=== PATIENT | female | born 1990 | race Caucasian/White ===

== ENCOUNTER 2018-07-18 08:15 | Outpatient (CLI) | payer OTHER ==
--- NOTE | 2018-07-18 10:28 | Ultrasound Report ---
Reason: ENCOUNTER FOR TEST, RESULT POSITIVE Procedure Date: 07/18/2018 Accession Number: [id number] / [id number] Procedure: US - OB First Trimester CPT Code: FULL RESULT: EXAM: FIRST TRIMESTER OBSTETRIC ULTRASOUND ( BETWEEN 11 AND 14 WEEKS weeks) EXAM DATE: 07/18/2018 10:08 AM. CLINICAL HISTORY: Uncertain dates. Size/dates. Viability. LMP: Unknown. COMPARISONS: None. TECHNIQUE: Transabdominal ultrasound examination with static image documentation. CLINICAL DATES: Unknown ASSESSMENT: Gestational Sac: Single intrauterine. Normal shape. Embryo: CRL (crown-rump length) 58.7 mm = 12 weeks 3 days. Cardiac activity: 154 beats per minute. Yolk sac: 6.1 mm. Amniotic fluid: Not accurately assessed at this gestational age. Early placenta: Not visible at this gestational age. Other: No perigestational fluid collection demonstrated. ANATOMY: Within the limits of first trimester ultrasound, anatomy appears normal. The nasal bone is present. The cranium, choroid plexus, nuchal region, anterior abdominal wall, cord insertion region, stomach and bladder are visualized and are within normal limits for gestational age. Cardiac situs is normal. Both upper and lower extremities are visualized. MATERNAL STRUCTURES: Uterus: Anteverted. Small posterior probable fibroid in uterine body 1.6 x 1.6 x 1.5 cm.. Cervix: Closed. Right Ovary/Adnexa: Unremarkable. The ovary measures 3.1 x 2.1 x 1.8 cm, volume 6.1 cc. Left Ovary/Adnexa: Unremarkable. The ovary measures 3.4 x 1.7 x 2.2 cm, volume 6.6 cc. Free Fluid: None. Other: None. IMPRESSION: 1. Single viable intrauterine at EGA 12 weeks 3 days with JERAD 01/27/2019 based on crown-rump length. 2. Normal early assessment of anatomy. 3. Exam otherwise as above. RADIA
== END 2018-07-18 08:16 | disposition home or self-care (01) ==
LOC: DI 08:15
PROVIDERS: ATTEND Registered Nurse
DX: Z32.01 Encounter for pregnancy test, result positive (principal)
CPT/HCPCS: 76801

== ENCOUNTER 2018-07-21 08:00 | Outpatient (CLI) | payer OTHER ==
[2018-07-21 15:16] LABS: MUDS CUTOFF CONCENTRATIONS CUTOFF CONC BELOW:
[2018-07-21 15:55] LABS: AMPHETAMINE SCREEN,URINE NEGATIVE (NEGATIVE); BENZODIAZEPINES SCREEN, URINE NEGATIVE (NEGATIVE); COCAINE SCREEN URINE NEGATIVE (NEGATIVE); METHADONE SCREEN, URINE NEGATIVE (NEGATIVE); METHAMPHETAMINES SCREEN, URINE NEGATIVE (NEGATIVE); OPIATE SCREEN, URINE NEGATIVE (NEGATIVE); OXYCODONE SCREEN, URINE NEGATIVE (NEGATIVE); PROPOXYPHENE SCREEN, URINE NEGATIVE (NEGATIVE); TRICYCLIC ANTIDEPRESSANT,URINE NEGATIVE (NEGATIVE)
== END 2018-07-21 08:01 | disposition home or self-care (01) ==
LOC: LAB.R 08:00
PROVIDERS: ATTEND Registered Nurse
DX: Z36.9 Encounter for antenatal screening, unspecified (principal)
CPT/HCPCS: 80306; 87491; 87591

== ENCOUNTER 2018-07-22 15:00 | Outpatient (CLI) | payer OTHER ==
[2018-07-22 15:25] LABS: BASOPHILS % (AUTO) 0.1 %; EOSINOPHILS # (AUTO) 0.3 10^3/uL (0.0-0.7); EOSINOPHILS % (AUTO) 2.5 %; HGB - HEMOGLOBIN 11.4 g/dL (12.0-16.0); LYMPHOCYTES # (AUTO) 1.9 10^3/uL (1.5-3.5); MEAN CORPUSCULAR HEMOGLOBIN 29.5 pg (27.0-31.0); MEAN CORPUSCULAR HGB CONC 34.2 g/dL (32.0-36.0); MEAN CORPUSCULAR VOLUME 86.2 fL (81.0-99.0); MEAN PLATELET VOLUME 7.9 fL (7.9-10.8); MONOCYTES # (AUTO) 0.7 10^3/uL (0.0-1.0); MONOCYTES % (AUTO) 6.6 %; NEUTROPHILS # (AUTO) 8.3 10^3/uL (1.5-6.6); NEUTROPHILS % (AUTO) 73.8 %; PLT - PLATELET COUNT 217 10^3/uL (130-450); RED BLOOD COUNT 3.88 10^6/uL (4.20-5.40); RED CELL DISTRIBUTION WIDTH 14.1 % (12.0-15.0); WHITE BLOOD COUNT 11.2 x10^3/uL (4.8-10.8)
[2018-07-22 16:06] LABS: BILIRUBIN,URINE NEGATIVE (NEGATIVE); GLUCOSE, URINE (UA) NEGATIVE (NEGATIVE); KETONES,URINE (UA) NEGATIVE (NEGATIVE); LEUKOCYTE ESTERASE, URINE NEGATIVE (NEGATIVE); NITRITE,URINE NEGATIVE (NEGATIVE); OCCULT BLOOD,URINE NEGATIVE (NEGATIVE); PROTEIN,URINE NEGATIVE (NEGATIVE); UROBILINOGEN,URINE 0.2 (NORMAL) E.U./dL (NORMAL)
[2018-07-22 16:17] LABS: BACTERIA,URINE Moderate /HPF (None Seen); CLARITY,URINE CLEAR (CLEAR); RBC,URINE None Seen /HPF (0-5); SQUAMOUS EPITHELIAL CELL,UR MANY Squamous (<= Few)
[2018-07-23 13:56] LABS: HEPATITIS C ANTIBODY NON-REACTIVE (NON-REACTIVE)
[2018-07-23 15:06] LABS: HIV AG/AB 4TH GEN NON-REACTIVE (NON-REACTIVE)
[2018-07-23 15:17] LABS: HEPATITIS B SURFACE ANTIGEN NON-REACTIVE (NON-REACTIVE)
== END 2018-07-22 15:01 | disposition home or self-care (01) ==
LOC: LAB 15:00
PROVIDERS: ATTEND Registered Nurse
DX: Z36.9 Encounter for antenatal screening, unspecified (principal)
CPT/HCPCS: 36415; 81001; 81599; 85025; 86592; 86762; 86803; 86850; 86900; 86901; 87340; 87389

== ENCOUNTER 2018-09-09 12:04 | Outpatient (CLI) | payer OTHER ==
--- NOTE | 2018-09-10 17:14 | Ultrasound Report ---
Reason: ENCTR FOR SCREENING Procedure Date: 09/09/2018 Accession Number: [id number] / [id number] Procedure: US - OB Detailed Eval CPT Code: FULL RESULT: EXAM: COMPLETE OBSTETRICAL ULTRASOUND EXAM DATE: 09/09/2018 01:45 PM. CLINICAL HISTORY: anatomic survey. COMPARISON: 07/17/2018 TECHNIQUE: Real-time sonographic evaluation of the fetus performed by the cold working supervisor. Multiple digital media representative static images were saved for review. DATING: Established EGA 20 weeks 0 days with JERAD 01/27/2019 based on first ultrasound of 07/17/2018. EGA 20 weeks 1 day with JERAD 01/26/2019 based on the current ultrasound. GENERAL EVALUATION [place] . Cardiac activity: 146 bpm. movement: Present Presentation: Cephalic. Placenta: Posterior position. No evidence for previa. Umbilical cord: 3 vessel cord. Central placental cord origin. Amniotic fluid: Subjectively normal. MVP 5 cm. BIOMETRY Bi-Parietal Diameter (BPD): 4.8 cm, 20 weeks 4 days Head Circumference (HC): 17.4 cm, 19 weeks 6 days Abdominal Circumference (AC): 15.2 cm, 20 weeks 2 days Femur Length (FL): 3.2 cm, 19 weeks 6 days Estimated Weight: 338 gm. ANATOMY The intracranial structures, profile, face/nose/lips, spine, 4 chamber heart and outflow tracts, stomach, abdominal wall and cord insertion, diaphragm, kidneys, bladder, and extremities were seen and demonstrate no abnormality. MATERNAL STRUCTURES Uterus: Unremarkable. Cervix: Long and closed. Right ovary/adnexa: Unremarkable. Left ovary/adnexa: Unremarkable. Free fluid: None. IMPRESSION: 1. [place] intrauterine with gestational age 20 weeks 1 days based on the current ultrasound concordant with the expected age based on the first ultrasound. 2. Normal anatomic survey. No anatomic abnormalities are detected at this time. RADIA
== END 2018-09-09 12:05 | disposition home or self-care (01) ==
LOC: DI 12:04
PROVIDERS: ATTEND Nurse Practitioner Obstetrics & Gynecology
DX: Z36.9 Encounter for antenatal screening, unspecified (principal)
CPT/HCPCS: 76811

== ENCOUNTER 2018-10-04 19:26 | Outpatient (CLI) | payer OTHER ==
[2018-10-04 19:44] VITALS: BP 128/78
[2018-10-04] MEDS ORDERED: LACTATED RINGERS 1,000 ML IV SCH (19:54)
[2018-10-04 19:55] LABS: BILIRUBIN,URINE NEGATIVE (NEGATIVE); GLUCOSE, URINE (UA) >=1000 mg/dL (NEGATIVE); KETONES,URINE (UA) NEGATIVE (NEGATIVE); LEUKOCYTE ESTERASE, URINE NEGATIVE (NEGATIVE); NITRITE,URINE NEGATIVE (NEGATIVE); OCCULT BLOOD,URINE NEGATIVE (NEGATIVE); PROTEIN,URINE NEGATIVE (NEGATIVE); UROBILINOGEN,URINE 0.2 (NORMAL) E.U./dL (NORMAL)
[2018-10-04 20:01] LABS: BASOPHILS % (AUTO) 0.2 %; EOSINOPHILS # (AUTO) 0.2 10^3/uL (0.0-0.7); EOSINOPHILS % (AUTO) 1.8 %; HGB - HEMOGLOBIN 11.5 g/dL (12.0-16.0); LYMPHOCYTES # (AUTO) 1.8 10^3/uL (1.5-3.5); LYMPHOCYTES % (AUTO) 15.4 %; MEAN CORPUSCULAR HEMOGLOBIN 29.4 pg (27.0-31.0); MEAN CORPUSCULAR HGB CONC 34.1 g/dL (32.0-36.0); MEAN CORPUSCULAR VOLUME 86.2 fL (81.0-99.0); MEAN PLATELET VOLUME 7.6 fL (7.9-10.8); MONOCYTES % (AUTO) 8.3 %; NEUTROPHILS # (AUTO) 8.6 10^3/uL (1.5-6.6); NEUTROPHILS % (AUTO) 74.3 %; PLT - PLATELET COUNT 250 10^3/uL (130-450); RED CELL DISTRIBUTION WIDTH 13.4 % (12.0-15.0); WHITE BLOOD COUNT 11.6 x10^3/uL (4.8-10.8)
[2018-10-04 20:06] LABS: BACTERIA,URINE Rare /HPF (None Seen); CLARITY,URINE CLEAR (CLEAR); RBC,URINE 0-5 /HPF (0-5); SQUAMOUS EPITHELIAL CELL,UR RARE Squamous (<= Few)
[2018-10-04 20:12] LABS: ALBUMIN 3.2 g/dL (3.2-5.5); BILIRUBIN,TOTAL 0.4 mg/dL (0.2-1.0); CALCIUM 8.4 mg/dL (8.5-10.3); CREATININE 0.7 mg/dL (0.4-1.0); TOTAL PROTEIN 6.5 g/dL (6.7-8.2)
[2018-10-04] MEDS ORDERED: metroNIDAZOLE 250 MG TABLET PO SCH (21:00)
[2018-10-04 21:15] LABS: HB2 TOTAL 12.5 g/dL; HEMOGLOBIN A1C 0.45 g/dL; HEMOGLOBIN A1C % 5.4 % (4.6-6.2)
--- NOTE | 2018-10-04 22:33 | Ultrasound Report ---
Reason: contractions and spotting; cervical length Procedure Date: 10/04/2018 Accession Number: [id number] / [id number] Procedure: US - OB Transvaginal CPT Code: FULL RESULT: EXAM: LIMITED OBSTETRICAL ULTRASOUND EXAM DATE: 10/04/2018 09:20 PM. CLINICAL HISTORY: Bleeding. 23 weeks . Concern for abruption. COMPARISON: None. TECHNIQUE: Real-time sonographic evaluation of the fetus performed by the reinsurance accountant. Multiple retail customer service representative static images were saved for review. Additional transvaginal imaging to more accurately evaluate cervical length/placental position/etc. DATING: Established EGA 23 weeks 5 days with JERAD 01/26/2019. GENERAL EVALUATION [place] . Cardiac activity: 153 bpm. movement: Visualized. Presentation: Cephalic. Placenta: Posterior position. Amniotic fluid: Normal. ALVA 17.3 cm. MVP 5.4 cm. MATERNAL STRUCTURES Transvaginal imaging demonstrates closed cervix 5.1 cm long. IMPRESSION: 1. [place] live intrauterine with gestational age 23 weeks 5 days based on established JERAD. 2. Posterior placenta with no sign of abruption or previa. 3. Normal ALVA of 17.3 cm. 4. Closed cervix 5.1 cm long. RADIA
--- NOTE | 2018-10-04 22:34 | Ultrasound Report ---
Reason: bleeding, 23 weeks, rule out abruption Procedure Date: 10/04/2018 Accession Number: [id number] / [id number] Procedure: US - OB Limited CPT Code: FULL RESULT: EXAM: LIMITED OBSTETRICAL ULTRASOUND EXAM DATE: 10/04/2018 09:20 PM. CLINICAL HISTORY: Bleeding. 23 weeks . Concern for abruption. COMPARISON: None. TECHNIQUE: Real-time sonographic evaluation of the fetus performed by the senior net engineer. Multiple district representative static images were saved for review. Additional transvaginal imaging to more accurately evaluate cervical length/placental position/etc. DATING: Established EGA 23 weeks 5 days with JERAD 01/26/2019. GENERAL EVALUATION [place] . Cardiac activity: 153 bpm. movement: Visualized. Presentation: Cephalic. Placenta: Posterior position. Amniotic fluid: Normal. ALVA 17.3 cm. MVP 5.4 cm. MATERNAL STRUCTURES Transvaginal imaging demonstrates closed cervix 5.1 cm long. IMPRESSION: 1. [place] live intrauterine with gestational age 23 weeks 5 days based on established JERAD. 2. Posterior placenta with no sign of abruption or previa. 3. Normal ALVA of 17.3 cm. 4. Closed cervix 5.1 cm long. RADIA
== END 2018-10-04 22:50 | disposition home or self-care (01) ==
LOC: WFO 19:26 → FBP 19:28 → WFO 22:50
PROVIDERS: ATTEND Registered Nurse
DX: O46.92 Antepartum hemorrhage, unspecified, second trimester (principal); O23.592 Infection of other part of genital tract in pregnancy, second trimester; Z3A.23 23 weeks gestation of pregnancy
CPT/HCPCS: 36415; 76815; 76817; 80053; 81001; 83036; 85025; 85384; 86850; 86900; 86901; 87491; 87591; 99213; A9270; J7120

== ENCOUNTER 2018-10-05 14:11 | Outpatient (CLI) | payer OTHER | END 2018-10-05 14:12 | disposition home or self-care (01) | LOC: LAB 14:11 | PROVIDERS: ATTEND Registered Nurse | DX: Z53.9 Procedure and treatment not carried out, unspecified reason (principal) ==

== ENCOUNTER 2018-10-25 09:12 | Outpatient (CLI) | payer OTHER | END 2018-10-25 09:13 | disposition home or self-care (01) | LOC: LAB 09:12 | PROVIDERS: ATTEND Registered Nurse | DX: Z36.9 Encounter for antenatal screening, unspecified (principal) | CPT/HCPCS: 36415; 82951; 82952; 86850 ==

== ENCOUNTER 2018-12-01 18:11 | Outpatient (CLI) | payer OTHER | END 2018-12-01 18:12 | disposition critical access hospital (66) | LOC: EMS 18:11 | PROVIDERS: ATTEND Surgery | DX: O99.89 Other specified diseases and conditions complicating pregnancy, childbirth and the puerperium (principal); R11.2 Nausea with vomiting, unspecified; R19.7 Diarrhea, unspecified | CPT/HCPCS: A0425; A0427 ==

== ENCOUNTER 2018-12-01 18:40 | Outpatient (CLI) | payer OTHER ==
[2018-12-01] MEDS ORDERED: LACTATED RINGERS 1,000 ML IV ONE ×2 (19:11→19:21)
[2018-12-01] MEDS ORDERED: ONDANSETRON 4 MG/2 ML VIAL IVP PRN (19:11)
[2018-12-01] MEDS ORDERED: ONDANSETRON 4 MG/2 ML VIAL ONE (19:20)
[2018-12-01 19:44] VITALS: BP 113/58
[2018-12-01 19:48] LABS: ALBUMIN 2.8 g/dL (3.2-5.5); ALBUMIN/GLOBULIN RATIO 0.8 (1.0-2.2); BILIRUBIN,TOTAL 0.6 mg/dL (0.2-1.0); CALCIUM 8.2 mg/dL (8.5-10.3); CREATININE 0.4 mg/dL (0.4-1.0); TOTAL PROTEIN 6.2 g/dL (6.7-8.2)
[2018-12-01 20:27] LABS: BILIRUBIN,URINE NEGATIVE (NEGATIVE); GLUCOSE, URINE (UA) 100 mg/dL (NEGATIVE); KETONES,URINE (UA) 40 mg/dL (NEGATIVE); LEUKOCYTE ESTERASE, URINE NEGATIVE (NEGATIVE); NITRITE,URINE NEGATIVE (NEGATIVE); OCCULT BLOOD,URINE NEGATIVE (NEGATIVE); PROTEIN,URINE NEGATIVE (NEGATIVE); UROBILINOGEN,URINE 0.2 (NORMAL) E.U./dL (NORMAL)
[2018-12-01 20:28] LABS: CLARITY,URINE CLEAR (CLEAR)
== END 2018-12-01 21:30 | disposition home or self-care (01) ==
LOC: WFO 18:40 → FBP 18:40 → WFO 21:30
PROVIDERS: ATTEND Registered Nurse
DX: O99.613 Diseases of the digestive system complicating pregnancy, third trimester (principal); K52.9 Noninfective gastroenteritis and colitis, unspecified; Z3A.31 31 weeks gestation of pregnancy
CPT/HCPCS: 36415; 80053; 81003; 96374; 99213; J7120; 59025; 81001; 87086

== ENCOUNTER 2018-12-24 08:00 | Outpatient (CLI) | payer OTHER | END 2018-12-24 23:59 | disposition home or self-care (01) | LOC: LAB.R 08:00 | PROVIDERS: ATTEND Registered Nurse | DX: Z34.90 Encounter for supervision of normal pregnancy, unspecified, unspecified trimester (principal) | CPT/HCPCS: 87491; 87591; 87797 ==

== ENCOUNTER 2018-12-24 10:38 | Outpatient (CLI) | payer OTHER ==
[2018-12-25 12:57] LABS: HEPATITIS C ANTIBODY NON-REACTIVE (NON-REACTIVE)
[2018-12-25 14:57] LABS: HIV AG/AB 4TH GEN NON-REACTIVE (NON-REACTIVE)
== END 2018-12-24 10:39 | disposition home or self-care (01) ==
LOC: LAB 10:38
PROVIDERS: ATTEND Registered Nurse
DX: Z34.90 Encounter for supervision of normal pregnancy, unspecified, unspecified trimester (principal)
CPT/HCPCS: 36415; 81599; 86592; 86803; 87389; 87491; 87591; 87797

== ENCOUNTER 2019-01-21 08:12 | Inpatient (IN) | payer OTHER ==
[2019-01-21] MEDS ORDERED: AMPICILLIN 2 GM in SODIUM CHLORIDE 0.9% MINIBAG 100 ML IV ONE (08:58)
[2019-01-21] MEDS ORDERED: fentaNYL 100 MCG/2 ML VIAL IVP PRN (08:58)
[2019-01-21] MEDS ORDERED: ONDANSETRON 4 MG/2 ML VIAL IVP PRN (08:58)
[2019-01-21] MEDS ORDERED: SODIUM CHLORIDE FLUSH 0.9% 10 ML SYRINGE IVP PRN (08:58)
[2019-01-21] MEDS: LACTATED RINGERS 1,000 ML IV SCH ×2 (09:45→19:01)
[2019-01-21] MEDS: SODIUM CHLORIDE FLUSH 0.9% 10 ML SYRINGE IVP SCH (09:45)
[2019-01-21 10:07] LABS: BASOPHILS % (AUTO) 0.3 %; EOSINOPHILS # (AUTO) 0.2 10^3/uL (0.0-0.7); EOSINOPHILS % (AUTO) 1.7 %; HGB - HEMOGLOBIN 11.5 g/dL (12.0-16.0); LYMPHOCYTES # (AUTO) 1.8 10^3/uL (1.5-3.5); LYMPHOCYTES % (AUTO) 17.3 %; MEAN CORPUSCULAR HEMOGLOBIN 27.3 pg (27.0-31.0); MEAN CORPUSCULAR HGB CONC 33.4 g/dL (32.0-36.0); MEAN CORPUSCULAR VOLUME 81.6 fL (81.0-99.0); MEAN PLATELET VOLUME 8.5 fL (7.9-10.8); MONOCYTES # (AUTO) 0.8 10^3/uL (0.0-1.0); MONOCYTES % (AUTO) 7.4 %; NEUTROPHILS # (AUTO) 7.5 10^3/uL (1.5-6.6); NEUTROPHILS % (AUTO) 73.3 %; PLT - PLATELET COUNT 250 10^3/uL (130-450); RED BLOOD COUNT 4.21 10^6/uL (4.20-5.40); RED CELL DISTRIBUTION WIDTH 14.7 % (12.0-15.0); WHITE BLOOD COUNT 10.2 x10^3/uL (4.8-10.8)
[2019-01-21] MEDS: OXYTOCIN/SODIUM CHLORIDE 500 ML IV SCH (11:02)
--- NOTE | 2019-01-21 13:08 | HISTORY & PHYSICAL EXAMINATION ---
Chief Complaint - Chief Complaint Chief Complaint: Contractions History of Present Illness - Admitted From Admitted From:: HOME - History Obtained From Records Reviewed: YES History obtained from: PATIENT Exam Limitations: NONE - History of Present Illness HPI Comment/Other: 28 y.o. EDC 01/27/19 based on 12 week US and LMP, EGA 39 1/7 weeks EGA admitted in latent labor, who was told to come in for IOL given hx of preciptous delivery with last . Patient noted to be sandeep spontaneously upon presentation to L&D q4-5 mins, mildly. PNC has been unremarkable. She is GBS + and will get prophylactic ABX during labor. OB Hx notable for 2 prior largest 7 lbs 12 onz. Labs: MBT O POS PNAS NEG HIV 1&2 NEG RPR/HepBsAg NR x 2 GC/CT NEG 2 GBS NEG 3 HR GTT with only one elevated value per pt. hx. 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 : reports: None HEENT: reports: None Psych: reports: None Musculoskeletal: reports: None Derm: reports: None MRSA Hx?: No Other Past Medical History: NONE Meds/Allgy - Allergies Allergies/Adverse Reactions: Allergies Allergy/AdvReac Type Severity Reaction Status Date / Time No Known Drug Allergies Allergy Verified 10/04/18 20:05 Review of Systems - All Other Systems All Other Systems: reports: Other (ROS NEGATIVE FOR HEENT, CV, RESP, GI/, MS/NM, SKIN, ENDOCRINE, PSYCH, HEMATOLOGIC, ENDOCRINEL) Exam - Vital Signs Reviewed Vital Signs: Yes - Physical Exam General Appearance: positive: No acute distress, Alert Eyes Bilateral: positive: Normal inspection, PERRL ENT: positive: ENT inspection nml Neck: positive: Nml inspection, Thyroid nml Respiratory: positive: Chest non-tender, No respiratory distress Cardiovascular: positive: Regular rate & rhythm, No murmur Peripheral Pulses: positive: 2+ Abdomen: positive: Non-tender, No organomegaly, Other (UX GRAVID AND CONSISTENT WITH DATES. CX /-2/VTX/BOWI AT 0915 HOURS CATEGORY I FHR TRACING WITH SPONTANEOUS MILD CONTRACTIONS Q3-4 MIN) Back: positive: Nml inspection Skin: positive: Color nml, No rash, Warm Extremities: positive: Non-tender, Full ROM, Nml appearance Neurologic/Psychiatric: positive: Oriented x3, CN's nml (2-12), Motor nml Conclusion/Plan - Problem List (1) Normal labor Conclusion/Plan: # 28 y.o. 39 1/7 weeks in spontaneous early labor admitted for delivery. # GBS POS, will RX with IV AMP until delivery # Pitocin augmentation to shorten labor # Otherwise routine orders. - Lab Results Lab results reviewed: Yes Fish Bones: 01/21/19 09:30
[2019-01-21] MEDS: AMPICILLIN 1 GM in SODIUM CHLORIDE 0.9% MINIBAG 100 ML IV SCH ×2 (13:50→17:56)
--- NOTE | 2019-01-21 15:54 | PROVIDER PROGRESS NOTE ---
Subjective - Prog Note Date Prog Note Date: 01/21/19 (ADMINISTRATIVE APPEALS TRIBUNAL MEMBER STAFF) Prog Note Time: 15:20 - Subjective Subjective: Patient on 4 miU pitocin with contractions q2-3 mins. Category 1 FHR tracing. Cx /-2/VTX/BOWI at 1520 hours. Patient has received 2nd dose of AMP for GBS prophylaxis. AROM clear at 1520. Continue present care. Objective - Lab Results Fish Bones: 01/21/19 09:30 Other Labs: Lab Results x24hrs 01/21/19 01/21/19 Range/Units 09:30 09:30 WBC 10.2 (4.8-10.8) x10^3/uL RBC 4.21 (4.20-5.40) 10^6/uL Hgb 11.5 L (12.0-16.0) g/dL Hct 34.3 L (37.0-47.0) % MCV 81.6 (81.0-99.0) fL MCH 27.3 (27.0-31.0) pg MCHC 33.4 (32.0-36.0) g/dL RDW 14.7 (12.0-15.0) % Plt Count 250 (130-450) 10^3/uL MPV 8.5 (7.9-10.8) fL Neut # (Auto) 7.5 H (1.5-6.6) 10^3/uL Lymph # (Auto) 1.8 (1.5-3.5) 10^3/uL Wolfe # (Auto) 0.8 (0.0-1.0) 10^3/uL Eos # (Auto) 0.2 (0.0-0.7) 10^3/uL Baso # (Auto) 0.0 (0.0-0.1) 10^3/uL Absolute Nucleated RBC 0.00 x10^3/uL Nucleated RBC % 0.0 /100WBC Blood Type O POSITIVE Antibody Screen NEGATIVE Assessment/Plan - Problem List (1) Normal labor Impression: As Above.
[2019-01-21] MEDS ORDERED: fentaNYL 100 MCG/2 ML VIAL IVP ONE (18:30)
[2019-01-21] MEDS ORDERED: fentaNYL 100 MCG/2 ML VIAL IVP SCH (18:30)
[2019-01-21] MEDS ORDERED: LIDOCAINE 1% 2 ML VIAL SUBQ ONE (19:15)
[2019-01-21] MEDS ORDERED: LIDOCAINE 1% 2 ML VIAL SUBQ SCH (19:35)
[2019-01-21] MEDS ORDERED: OXYTOCIN 10 UNIT/ML VIAL IM SCH (19:48)
--- NOTE | 2019-01-21 19:57 | PROVIDER PROGRESS NOTE ---
Subjective - Prog Note Date Prog Note Date: 01/21/19 (DELIVERY NOTE) Prog Note Time: 19:53 - Subjective Subjective: DELIVERY NOTE: Patient progressed to C/C/+2 at 1858 hours. Delivered over intact perineum viable male infant with 9/9 (weight pending). Baby delivered at 1928. Cord clamped and cut after approx. 30 seconds after delivery. IV pitocin infusion then started and placenta delivered spontaneously at 1932 hours. Exam of canal revealed no cervical or vaginal laceration and intact perineum. EBL 200 mL. Both mother and baby doing well. Peds in attendance for this delivery. Objective - Vital Signs/Intake & Output Intake & Output: Intake & Output 01/18/19 01/19/19 01/20/19 01/21/19 23:59 23:59 23:59 23:59 Intake Total 1100 Balance 1100 - Lab Results Fish Bones: 01/21/19 09:30 Other Labs: Lab Results x24hrs 01/21/19 01/21/19 Range/Units 09:30 09:30 WBC 10.2 (4.8-10.8) x10^3/uL RBC 4.21 (4.20-5.40) 10^6/uL Hgb 11.5 L (12.0-16.0) g/dL Hct 34.3 L (37.0-47.0) % MCV 81.6 (81.0-99.0) fL MCH 27.3 (27.0-31.0) pg MCHC 33.4 (32.0-36.0) g/dL RDW 14.7 (12.0-15.0) % Plt Count 250 (130-450) 10^3/uL MPV 8.5 (7.9-10.8) fL Neut # (Auto) 7.5 H (1.5-6.6) 10^3/uL Lymph # (Auto) 1.8 (1.5-3.5) 10^3/uL [place] # (Auto) 0.8 (0.0-1.0) 10^3/uL Eos # (Auto) 0.2 (0.0-0.7) 10^3/uL Baso # (Auto) 0.0 (0.0-0.1) 10^3/uL Absolute Nucleated RBC 0.00 x10^3/uL Nucleated RBC % 0.0 /100WBC Blood Type O POSITIVE Antibody Screen NEGATIVE Assessment/Plan - Problem List (2) Spontaneous vaginal delivery Impression: As Above.
[2019-01-21] MEDS: IBUPROFEN 800 MG TABLET PO PRN (20:35)
[2019-01-21] MEDS: ACETAMINOPHEN 325 MG TABLET PO PRN (20:36)
[2019-01-21] MEDS: DOCUSATE SODIUM 100 MG CAPSULE PO PRN (20:36)
[2019-01-21] MEDS ORDERED: OXYTOCIN 10 UNIT/ML VIAL ONE (22:04)
[2019-01-21] MEDS ORDERED: LIDOCAINE-MPF 1% 30 ML VIAL ONE (22:34)
[2019-01-21] MEDS ORDERED: SODIUM CHLORIDE 0.9% 0 ML IV ONE (23:03)
[2019-01-22] MEDS: AMPICILLIN 1 GM in SODIUM CHLORIDE 0.9% MINIBAG 100 ML IV SCH (00:57)
[2019-01-22] MEDS: SIMETHICONE CHEW 80 MG TABLET PO SCH ×3 (00:58→14:46)
[2019-01-22] MEDS: IBUPROFEN 800 MG TABLET PO PRN ×2 (04:06→14:46)
[2019-01-22] MEDS: ACETAMINOPHEN 325 MG TABLET PO PRN ×2 (04:06→14:47)
[2019-01-22 06:26] LABS: BASOPHILS % (AUTO) 0.3 %; EOSINOPHILS # (AUTO) 0.1 10^3/uL (0.0-0.7); HGB - HEMOGLOBIN 10.7 g/dL (12.0-16.0); LYMPHOCYTES # (AUTO) 2.1 10^3/uL (1.5-3.5); LYMPHOCYTES % (AUTO) 15.4 %; MEAN CORPUSCULAR HEMOGLOBIN 26.7 pg (27.0-31.0); MEAN CORPUSCULAR HGB CONC 32.5 g/dL (32.0-36.0); MEAN CORPUSCULAR VOLUME 82.3 fL (81.0-99.0); MEAN PLATELET VOLUME 8.2 fL (7.9-10.8); MONOCYTES # (AUTO) 1.2 10^3/uL (0.0-1.0); MONOCYTES % (AUTO) 8.5 %; NEUTROPHILS # (AUTO) 10.3 10^3/uL (1.5-6.6); NEUTROPHILS % (AUTO) 74.8 %; PLT - PLATELET COUNT 230 10^3/uL (130-450); RED BLOOD COUNT 4.02 10^6/uL (4.20-5.40); RED CELL DISTRIBUTION WIDTH 14.1 % (12.0-15.0); WHITE BLOOD COUNT 13.7 x10^3/uL (4.8-10.8)
--- NOTE | 2019-01-22 07:02 | PROVIDER PROGRESS NOTE ---
Subjective - Prog Note Date Prog Note Date: 01/22/19 (BUSINESS SUPPORT) Prog Note Time: 07:00 - Subjective Pt reports feeling: Improved Subjective: BUSINESS SUPPORT STAFF: PPD #1 S: No complaints, doing well. ambulating, denies heavy bleeding. Objective - Vital Signs/Intake & Output Reviewed Vital Signs: Yes Vital Signs: Vital Signs x48h Temp Pulse Resp BP Pulse Ox 01/22/19 04:00 36.8 C 88 16 116/69 98 01/21/19 23:27 37.1 C 78 18 119/65 99 Intake & Output: Intake & Output 01/19/19 01/20/19 01/21/19 01/22/19 23:59 23:59 23:59 23:59 Intake Total 1600.000 Output Total 200 450 Balance 1400.000 -450 - Objective General Appearance: positive: No acute distress, Alert Abdomen: positive: Non-tender, Other (UX FIRM U-6 AND NT, NORMAL LOCHIA) Extremities: positive: Non-tender, Full ROM - Lab Results Fish Bones: 01/22/19 06:21 Other Labs: Lab Results x24hrs 01/22/19 01/21/19 01/21/19 Range/Units 06:21 09:30 09:30 WBC 13.7 H 10.2 (4.8-10.8) x10^3/uL RBC 4.02 L 4.21 (4.20-5.40) 10^6/uL Hgb 10.7 L 11.5 L (12.0-16.0) g/dL Hct 33.1 L 34.3 L (37.0-47.0) % MCV 82.3 81.6 (81.0-99.0) fL MCH 26.7 L 27.3 (27.0-31.0) pg MCHC 32.5 33.4 (32.0-36.0) g/dL RDW 14.1 14.7 (12.0-15.0) % Plt Count 230 250 (130-450) 10^3/uL MPV 8.2 8.5 (7.9-10.8) fL Neut # (Auto) 10.3 H 7.5 H (1.5-6.6) 10^3/uL Lymph # (Auto) 2.1 1.8 (1.5-3.5) 10^3/uL [place] # (Auto) 1.2 H 0.8 (0.0-1.0) 10^3/uL Eos # (Auto) 0.1 0.2 (0.0-0.7) 10^3/uL Baso # (Auto) 0.0 0.0 (0.0-0.1) 10^3/uL Absolute Nucleated RBC 0.00 0.00 x10^3/uL Nucleated RBC % 0.0 0.0 /100WBC Blood Type O POSITIVE Antibody Screen NEGATIVE Assessment/Plan - Problem List (1) Normal labor Impression: PPD #1 S/P doing well. Routine care.
[2019-01-22] MEDS: DOCUSATE SODIUM 100 MG CAPSULE PO PRN (08:40)
[2019-01-22] MEDS: LACTATED RINGERS 1,000 ML IV SCH ×2 (13:47→13:48)
[2019-01-22] MEDS: OXYTOCIN/SODIUM CHLORIDE 500 ML IV SCH (13:47)
[2019-01-22] MEDS: SODIUM CHLORIDE FLUSH 0.9% 10 ML SYRINGE IVP SCH ×3 (13:47→13:50)
[2019-01-22 20:31] VITALS: BP 123/73
--- NOTE | 2019-01-22 21:32 | Discharge Plan ---
Discharge Plan Disposition: 01 Home, Self Care Condition: Good Diet: Regular Shower Restrictions: No Driving Restrictions: Yes (SEE WRITTEN INSTRUCTIONS) Weight Bearing: Full Weight Additional Instructions or Follow Up instructions: SEE WRITTEN INSTRUCTIONS No Smoking: If you smoke, Please STOP! Call for help. Follow-up with: Zuleyka Fleming CNM, ARNP [Provider Admit Priv/Credential] - 6 Weeks (6 week visit with Zuleyka Fleming)
--- NOTE | 2019-01-22 21:35 | DISCHARGE SUMMARY ---
Discharge Summary Admit Date: 01/21/19 Discharge Date: 01/22/19 Discharging Provider: KASSANDRA Code Status: Attempt Resuscitation Condition at Discharge: Good Discharge Disposition: 01 Home, Self Care - DIAGNOSES Admission Diagnoses: TERM LABOR SPONTANEOUS VAGINAL DELIVERY Discharge Diagnoses with Status of Each Condition: SPONTANEOUS VAGINAL DELIVERY (GOOD CONDITION) - HPI History of Present Illness: History of Present Illness - Admitted From Admitted From:: HOME - History Obtained From Records Reviewed: YES History obtained from: PATIENT Exam Limitations: NONE - History of Present Illness HPI Comment/Other: 28 y.o. EDC 01/27/19 based on 12 week US and LMP, EGA 39 1/7 weeks EGA admitted in latent labor, who was told to come in for IOL given hx of preciptous delivery with last . Patient noted to be sandeep spontaneously upon presentation to L&D q4-5 mins, mildly. PNC has been unremarkable. She is GBS + and will get prophylactic ABX during labor. OB Hx notable for 2 prior largest 7 lbs 12 onz. Labs: MBT O POS PNAS NEG HIV 1&2 NEG RPR/HepBsAg NR x 2 GC/CT NEG 2 GBS NEG 3 HR GTT with only one elevated value per pt. hx. 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 : reports: None HEENT: reports: None Psych: reports: None Musculoskeletal: reports: None Derm: reports: None MRSA Hx?: No Other Past Medical History: NONE Meds/Allgy - Allergies Allergies/Adverse Reactions: Allergies Allergy/AdvReac Type Severity Reaction Status Date / Time No Known Drug Allergies Allergy Verified 10/04/18 20:05 Review of Systems - All Other Systems All Other Systems: reports: Other (ROS NEGATIVE FOR HEENT, CV, RESP, GI/, MS/NM, SKIN, ENDOCRINE, PSYCH, HEMATOLOGIC, ENDOCRINEL) Exam - Vital Signs Reviewed Vital Signs: Yes - Physical Exam General Appearance: positive: No acute distress, Alert Eyes Bilateral: positive: Normal inspection, PERRL ENT: positive: ENT inspection nml Neck: positive: Nml inspection, Thyroid nml Respiratory: positive: Chest non-tender, No respiratory distress Cardiovascular: positive: Regular rate & rhythm, No murmur Peripheral Pulses: positive: 2+ Abdomen: positive: Non-tender, No organomegaly, Other (UX GRAVID AND CONSISTENT WITH DATES. CX 370/-2/VTX/BOWI AT 0915 HOURS CATEGORY I FHR TRACING WITH SPONTANEOUS MILD CONTRACTIONS Q3-4 MIN) Back: positive: Nml inspection Skin: positive: Color nml, No rash, Warm Extremities: positive: Non-tender, Full ROM, Nml appearance Neurologic/Psychiatric: positive: Oriented x3, CN's nml (2-12), Motor nml Conclusion/Plan - Problem List (1) Normal labor Conclusion/Plan: # 28 y.o. 39 1/7 weeks in spontaneous early labor admitted for delivery. # GBS POS, will RX with IV AMP until delivery # Pitocin augmentation to shorten labor # Otherwise routine orders. - Lab Results Lab results reviewed: Yes Fish Bones: 01/21/19 09:30 - HOSPITAL COURSE Hospital Course: The patient was admitted the morning of 01/21/19 and noted to be 3 cm dilated, with spontaneous mild-moderate contractions. She was augmented with IV pitocin and received 2 doses of AMP prior to AROM. She progressed smoothly through active phase of labor and went on to deliver at 1928 hours same day a viable male with 9/9, weight 3,250 GM, over an intact perineum. Mother had an uncomplicated course and is ready to go home on PPD #1 same as her baby. - ALLERGIES Allergies/Adverse Reactions: Allergies Allergy/AdvReac Type Severity Reaction Status Date / Time No Known Drug Allergies Allergy Verified 10/04/18 20:05 - PHYSICAL EXAM AT DISCHARGE General Appearance: positive: No acute distress, Alert Eyes Bilateral: positive: Normal inspection Neck: positive: Nml inspection Abdomen: positive: Non-tender, Other (UX FIRM U-4 AND NT, NORMAL LOCHIA) Skin: positive: Color nml, No rash Extremities: positive: Non-tender, Full ROM, Nml appearance Neurologic/Psychiatric: positive: Oriented x3 - LABS Result Diagrams: 01/22/19 06:21 - FOLLOW UP Follow Up: 6 Weeks at [facility] with Zuleyka Fleming - TIME SPENT Time Spent in Discharge (Minutes): 30
--- NOTE | 2019-01-22 22:30 | Labor Flowsheet ---
Labor Flowsheet Datetime Report Generated by CPN: 01/22/2019 22:29 Datetime: 01/22/2019 20:27 VITAL SIGNS NBP Sys/Marsha/Mean (mmHg): 123 : 73 : 83 Pulse: 78 LaborFlag: Labor Datetime: 01/21/2019 19:28 Comments: head @1928, @ 1928 Datetime: 01/21/2019 19:26 UTERINE ACTIVITY Monitor Mode: External Frequency (min): 2-3 Duration (sec): 60-100 Pattern: Normal: <= 5 Contractions in 10 Minutes ASSESSMENT A Monitor Mode: External US FHR Baseline Rate : 120 Variability: Moderate 6-25 bpm Accelerations: 15X15 Datetime: 01/21/2019 19:22 PATIENT CARE Oxygen Amount (LPM): 10 Oxygen Method: Non-Rebreather Datetime: 01/21/2019 19:20 Decelerations: Variable Category: Category II Datetime: 01/21/2019 19:14 Patient Care Comments: Pt agrees to not push until Dry Starch Operator is here. Pt with controlled breath ing thorugh ctxs Datetime: 01/21/2019 19:03 Communication Comments: Dr. Jeremías updated Datetime: 01/21/2019 18:58 VAGINAL EXAM Dilatation (cm): 10.0 Effacement (%): 100 Station: 2 Datetime: 01/21/2019 18:41 Medication Comments: Fentanyl 100mcg IVP Datetime: 01/21/2019 18:30 Quality: Strong Resting Tone (Palpate): Relaxed Datetime: 01/21/2019 18:26 Exam by: Dr. Tillitsonm Datetime: 01/21/2019 18:24 Provider Reviewed Strip: Yes COMMUNICATION Communication: Provider at Bedside Notification Reason: Status Update; Status; Labor Status; Uterine Activity Datetime: 01/21/2019 17:59 Respirations: 20 Temperature (C): 36.7 Datetime: 01/21/2019 17:57 Antibiotics: Ampicillin IV 1 Gm Datetime: 01/21/2019 17:25 MATERNAL ASSESSMENT Headache: Denies Nausea/Vomiting: Denies Datetime: 01/21/2019 17:20 Monitor Interventions for UA: Carl Adjusted Contraction Comments: Pt states monitor not picking up ctxs. Pt states she conts to contract q2-3 min. PAIN Pain Scale: 10 Pain Presence: Intermittent Pain Type: Contraction Pain Coping: Breathing Through Contractions; Declines Medication or Epidural Pain Assessment Comments: Pt breathing through ctxs, using NO sometimes. Declines other interventi ons at this time. Cont to monitor. Comfort Measures: Breathing/Relaxation; Coaching; Family Support Datetime: 01/21/2019 16:04 Amniotic Fluid Color: Clear Amniotic Fluid Amount: Large Amniotic Fluid Odor: Normal Datetime: 01/21/2019 16:03 Patient Position/Activity: Walking Hygiene: Joanne Care; Underpad Changed; Peripad Changed Datetime: 01/21/2019 16:00 MEDICATIONS Pitocin (milliunits): Increased to @ 5 Datetime: 01/21/2019 15:20 Membrane Status: Ruptured Membranes Rupture Method: Artificial Datetime: 01/21/2019 13:44 Monitor Interventions for FHR: Ultrasound Adjusted Datetime: 01/21/2019 13:30 Pain Location: Abdomen Datetime: 01/21/2019 13:04 I/O Interventions: Up to BR Datetime: 01/21/2019 11:33 SpO2 (%): 100 Datetime: 01/21/2019 11:19 Strip Reviewed by: Dr. Fish Datetime: 01/21/2019 11:07 Pitocin Checklist: At Least 1 Acceleration of 15 bpm x 15 Seconds in 30 Minutes or Adequate Variabi lity; No More than 1 Late Deceleration Occurred in Past 30 Minutes; No More than 2 Variable Decelerat ions > 60 Seconds in Duration and decreasing >60 bpm in 30 minutes; No More than 5 Uterine Contractio ns in 10 Minutes for any 20 Minute Interval; Uterus Palpates Soft between Contractions
== END 2019-01-22 22:00 | disposition home or self-care (01) | DRG 807 ==
LOC: WFO 08:12 → FBP 08:15 → WFO 08:57 → FBP 08:58 → OBSVTOIN 12:42
PROVIDERS: ADMIT Obstetrics & Gynecology; ATTEND Obstetrics & Gynecology
PROC: 10E0XZZ Delivery of Products of Conception, External Approach (ICD-10-PCS; principal; 2019-01-21)
PROC: 10907ZC Drainage of Amniotic Fluid, Therapeutic from Products of Conception, Via Natural or Artificial Opening (ICD-10-PCS; 2019-01-21)
DX: O99.824 Streptococcus B carrier state complicating childbirth (principal); Z37.0 Single live birth; Z3A.39 39 weeks gestation of pregnancy
CPT/HCPCS: 36415; 85025; 86850; 86900; 86901; 96365; 96366; 96367; A9270; G0378; J7120

== ENCOUNTER 2020-05-18 02:08 | Outpatient (CLI) | payer OTHER | END 2020-05-18 02:09 | disposition critical access hospital (66) | LOC: EMS 02:08 | PROVIDERS: ATTEND Surgery | DX: R07.9 Chest pain, unspecified (principal); R68.84 Jaw pain | CPT/HCPCS: A0425; A0429 ==

== ENCOUNTER 2020-05-18 02:27 | Emergency (ER) | payer OTHER ==
--- NOTE | 2020-05-18 03:17 | ED Physician Documentation ---
PD HPI CHEST PAIN - Stated complaint Stated Complaint: CP - Chief complaint Chief Complaint: Cardiac - History obtained from History obtained from: Patient - History of Present Illness Timing - onset: Other (various c/o over different timeframes (see below)) Pain level now: 2 Improved by: Nothing Worsened by: Other (no exacerbating factors) Similar symptoms before: Has not had sx before Recently seen: Not recently seen - Additional information Additional information: patient c/o numbness in bilateral upper and lower extremities x few weeks. Has had "numbing pain" (per patient) left upper back that radiates to left side of neck and to left jaw. Today she developed chest tightness and burning which is still present but improved. Tonight, she woke from sleep due to "jerking movement" (per patient) of her body, legs "were sweaty", hands were "cold to touch". Review of Systems Constitutional: reports: Sweats. denies: Fever, Chills, Myalgias, Fatigue Eyes: reports: Reviewed and negative Throat: denies: Sore throat Cardiac: reports: Chest pain / pressure. denies: Palpitations, Pedal edema, Calf pain Respiratory: reports: Reviewed and negative GI: reports: Reviewed and negative : denies: Dysuria, Frequency, Now EGA Skin: denies: Rash Neurologic: reports: Numbness. denies: Generalized weakness, Focal weakness, Headache PD PAST MEDICAL HISTORY - Past Medical History Past Medical History: No Cardiovascular: None Respiratory: None Neuro: None Endocrine/Autoimmune: None GI: None WEATHERCASTER: None : None HEENT: None Psych: None Musculoskeletal: None Derm: None - Past Surgical History Past Surgical History: No - Present Medications Home Medications: Ambulatory Orders Medication Instructions Recorded Confirmed No Known Home Medications 05/18/20 05/18/20 - Allergies Allergies/Adverse Reactions: Allergies Allergy/AdvReac Type Severity Reaction Status Date / Time No Known Drug Allergies Allergy Verified 05/18/20 02:38 - Social History Does the pt smoke?: No Smoking Status: Never smoker Does the pt drink ETOH?: No Does the pt have substance abuse?: No - Immunizations Immunizations are current?: Yes - POLST Patient has POLST: No PD ED PE NORMAL - Vitals Vital signs reviewed: Yes - General General: Alert and oriented X 3, No acute distress, Well developed/nourished - HEENT HEENT: PERRL, EOMI, Moist mucous membranes - Neck Neck: Supple, no meningeal sign - Cardiac Cardiac: RRR, No murmur, No gallop, No rub - Respiratory Respiratory: No respiratory distress, Clear bilaterally - Abdomen Abdomen: Soft, Non tender - Back Back: No CVA TTP - Derm Derm: Normal color, Warm and dry, No rash - Extremities Extremities: No edema - Neuro Neuro: Alert and oriented X 3, scraper burrer 2-12 intact, No motor deficit, No sensory deficit, Normal speech Eye Opening: Spontaneous Motor: Obeys Commands Verbal: Oriented GCS Score: 15 Results - Vitals Vitals: Oxygen O2 Source Room air - EKG (time done) No standard instances Rate: Rate (enter#) (66) Rhythm: NSR Bradford: Normal Intervals: Normal SD QRS: Normal Ischemia: Normal ST segments Other comments: Other comments (PACs) - Labs Labs: Laboratory Tests 05/18/20 05/18/20 03:50 03:50 WBC 9.2 RBC 4.58 Hgb 13.2 Hct 39.3 MCV 85.8 MCH 28.8 MCHC 33.6 RDW 12.7 Plt Count 197 MPV 10.0 Neut # (Auto) 5.8 Lymph # (Auto) 2.3 Ogle # (Auto) 0.6 Eos # (Auto) 0.3 Baso # (Auto) 0.0 Absolute Nucleated RBC 0.00 Nucleated RBC % 0.0 Sodium 139 Potassium 3.5 Chloride 105 Carbon Dioxide 25 Anion Gap 9.0 BUN 18 Creatinine 0.7 Estimated GFR (MDRD) 97 Glucose 110 H Calcium 8.9 Total Bilirubin 0.6 AST 16 ALT 11 Alkaline Phosphatase 91 Total Protein 7.1 Albumin 4.2 Globulin 2.9 Albumin/Globulin Ratio 1.4 Lipase 49 PD MEDICAL DECISION MAKING - ED course Complexity details: reviewed results, re-evaluated patient, considered differential, d/w patient Departure - Departure Disposition: 01 Home, Self Care Clinical Impression: Paresthesia of both hands Condition: Good Instructions: ED Chest Pain Atypical Unkn Cause, ED Paraesthesias Follow-Up: SUDHAKAR Timmons [Provider Group] Discharge Date/Time: 05/18/20 05:11
[2020-05-18 03:58] LABS: BASOPHILS % (AUTO) 0.3 %; EOSINOPHILS # (AUTO) 0.3 10^3/uL (0.0-0.7); EOSINOPHILS % (AUTO) 3.6 %; HGB - HEMOGLOBIN 13.2 g/dL (12.0-16.0); LYMPHOCYTES # (AUTO) 2.3 10^3/uL (1.5-3.5); LYMPHOCYTES % (AUTO) 25.1 %; MEAN CORPUSCULAR HEMOGLOBIN 28.8 pg (27.0-31.0); MEAN CORPUSCULAR HGB CONC 33.6 g/dL (32.0-36.0); MEAN CORPUSCULAR VOLUME 85.8 fL (81.0-99.0); MONOCYTES # (AUTO) 0.6 10^3/uL (0.0-1.0); MONOCYTES % (AUTO) 6.9 %; NEUTROPHILS # (AUTO) 5.8 10^3/uL (1.5-6.6); NEUTROPHILS % (AUTO) 63.8 %; PLT - PLATELET COUNT 197 10^3/uL (130-450); RED BLOOD COUNT 4.58 10^6/uL (4.20-5.40); RED CELL DISTRIBUTION WIDTH 12.7 % (12.0-15.0); WHITE BLOOD COUNT 9.2 x10^3/uL (4.8-10.8)
[2020-05-18 04:11] LABS: ALBUMIN 4.2 g/dL (3.2-5.5); ALBUMIN/GLOBULIN RATIO 1.4 (1.0-2.2); BILIRUBIN,TOTAL 0.6 mg/dL (0.2-1.0); CALCIUM 8.9 mg/dL (8.5-10.3); CREATININE 0.7 mg/dL (0.4-1.0); TOTAL PROTEIN 7.1 g/dL (6.7-8.2)
[2020-05-18 05:10] VITALS: BP 111/70
== END 2020-05-18 05:11 | disposition home or self-care (01) ==
LOC: EDUNIT# → ED 02:27
DX: R20.2 Paresthesia of skin (principal)
CPT/HCPCS: 36415; 80053; 83690; 85025; 93005; 99284

== ENCOUNTER 2021-02-11 08:00 | Outpatient (CLI) | payer OTHER ==
[2021-02-11 20:38] LABS: BACTERIAL VAGINOSIS DNA POSITIVE (NEGATIVE); CANDIDA GLABRATA DNA NEGATIVE (NEGATIVE); CANDIDA GROUP DNA NEGATIVE (NEGATIVE); CANDIDA KRUSEI DNA NEGATIVE (NEGATIVE); TRICHOMONAS VAGINALIS DNA NEGATIVE (NEGATIVE)
== END 2021-02-11 23:59 | disposition home or self-care (01) ==
LOC: LAB.R 08:00
PROVIDERS: ATTEND Advanced Practice Midwife
DX: N76.0 Acute vaginitis (principal)
CPT/HCPCS: 87661; 87801